=== PATIENT | female | born 1965 | race Caucasian/White ===

== ENCOUNTER → 2017-07-07 | Outpatient (CLI) | payer OTHER ==
[~2017-07-07] MED LIST: ASPIR 8181 M1 PO; CLARITIN10 M3 PO; DESYREL300 MG PO; FISH OIL CONC1000 M1 PO; GLUCOPHAGE500 MG PO; INDERAL40 MG PO; PAXIL20 MG PO; PRILOSEC20 MG PO; PROVENTIL HFA6.7 GM IH; PROZAC20 MG PO; PROZAC40 MG PO; REQUIP0.25 MG PO; TOPAMAX100 MG PO; VITAMIN B-12250 MCG; ZITHROMAX Z-PA250 MG PO
== END | disposition home or self-care (01) ==
LOC: CDC 11:24
DX: Z01.810 Encounter for preprocedural cardiovascular examination (principal); K43.9 Ventral hernia without obstruction or gangrene
CPT/HCPCS: 93000

== ENCOUNTER 2017-07-13 06:32 | Day surgery (SDC) | payer OTHER ==
[~2017-07-13] VITALS: Ht 162.6 cm; Wt 111.3 kg
[2017-07-13 07:19] VITALS: BP 137/64
[2017-07-13 07:37] LABS: CHLORIDE 108 MEQ/L (99-109); CREATININE 0.9 MG/DL (0.6-1.3); GFR ESTIMATE (CALCULATED) > 59 mL/min/; GLUCOSE 144 mg/dL (70-99); POTASSIUM 4.2 MEQ/L (3.7-5.4); SODIUM 140 MEQ/L (136-147); UREA NITROGEN (BUN) 11 mg/dL (9-23)
[2017-07-13] MEDS ORDERED: NORCO 5/3251 TABLET PO (11:00)
[2017-07-13 13:04] VITALS: BP 166/75
[2017-07-13 13:55] VITALS: BP 134/74
== END 2017-07-13 14:00 | disposition home or self-care (01) ==
LOC: SDC 06:32
PROVIDERS: Surgery
PROC: 0WUF4JZ Supplement Abdominal Wall with Synthetic Substitute, Percutaneous Endoscopic Approach (ICD-10-PCS; principal; 2017-07-13)
DX: K43.0 Incisional hernia with obstruction, without gangrene (principal); K66.0 Peritoneal adhesions (postprocedural) (postinfection); E11.9 Type 2 diabetes mellitus without complications; I10 Essential (primary) hypertension; K21.0 Gastro-esophageal reflux disease with esophagitis; E78.4 Other hyperlipidemia; Z79.82 Long term (current) use of aspirin; Z88.0 Allergy status to penicillin; Z79.84 Long term (current) use of oral hypoglycemic drugs; Z86.73 Personal history of transient ischemic attack (TIA), and cerebral infarction without residual deficits; I25.2 Old myocardial infarction
CPT/HCPCS: 80048; 82948; C1781; J0330; J0690; J1170; J2001; J2250; J2405; J2710; J3010; J3475; S0020

== ENCOUNTER → 2017-09-30 | Outpatient (CLI) | payer OTHER ==
[~2017-09-30] MED LIST changes: +NORCO 5/3251 TABLET PO
== END | disposition home or self-care (01) ==
LOC: NUC 06:44
DX: R11.2 Nausea with vomiting, unspecified (principal); R19.7 Diarrhea, unspecified; E66.9 Obesity, unspecified; Z68.30 Body mass index [BMI] 30.0-30.9, adult; Z12.11 Encounter for screening for malignant neoplasm of colon
CPT/HCPCS: 78264; A9541